=== PATIENT | male | born 1965 | race Caucasian/White ===

== ENCOUNTER 2016-12-14 10:51 | Emergency (ER) | payer BC, OTHER ==
[~2016-12-14] VITALS: Ht 175.3 cm; Wt 72.6 kg
[~2016-12-14 10:51] MED LIST: FLONASE 0.05%50 MCG; IBUPROFEN 600600 M1; NORCO 5-325 TA1 EACH PO; PREDNISONE 10 M10 MG PO
[2016-12-14] MEDS ORDERED: ZPAK PO (11:51)
[2016-12-14] MEDS ORDERED: ROBITUSSIN DM118 ML PO (11:51)
[2016-12-14 12:19] VITALS: BP 137/88
== END 2016-12-14 12:21 | disposition home or self-care (01) ==
LOC: ER 10:51
DX: J06.9 Acute upper respiratory infection, unspecified (principal)

== ENCOUNTER 2018-02-26 16:23 | Emergency (ER) | payer BC ==
[~2018-02-26] VITALS: Ht 177.8 cm; Wt 79.4 kg
[~2018-02-26 16:23] MED LIST changes: +ROBITUSSIN DM118 ML PO; +ZPAK PO
[2018-02-26 16:31] VITALS: BP 180/98
[2018-02-26] MEDS ORDERED: PENICILLIN V P500 MG PO (17:03)
[2018-02-26] MEDS ORDERED: ULTRAM 50MG TAB50 MG PO (17:03)
[2018-02-26] MEDS ORDERED: NAPROSYN500 MG PO (17:03)
== END 2018-02-26 17:16 | disposition home or self-care (01) ==
LOC: ER 16:23
DX: K02.9 Dental caries, unspecified (principal); K05.10 Chronic gingivitis, plaque induced